=== PATIENT | male | born 1980 | race Caucasian/White ===

== ENCOUNTER 2020-09-28 09:56 | Emergency (ER) | payer BC, SELFPAY ==
[2020-09-28 10:12] VITALS: BP 156/80; PULSE 66; RESP 16; TEMP 36.8; O2SAT 99; BMI 30.9
--- NOTE | 2020-09-28 11:06 | PC.NURSE ---
PT WAS ABLE TO CAPTURE BAT AND BRING TO ANIMAL CONTROL FOR TESTING.
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
== END 2020-09-28 11:37 | disposition home or self-care (01) ==
PROVIDERS: Emergency Provider Emergency Medicine
DX: Z20.3 Contact with and (suspected) exposure to rabies (principal)
CPT/HCPCS: 99283

== ENCOUNTER 2022-01-07 12:17 | Emergency (ER) | payer BC, SELFPAY ==
[2022-01-07 12:22] VITALS: BP 137/89; PULSE 89; RESP 16; O2SAT 99; BMI 30.9
[2022-01-07] MEDS: Diphth,Pertus(ACell),Tet Adult 0.5 ML SYRINGE IM (13:13)
[2022-01-07] MEDS: Lidocaine HCl 1%/Epi 1:100,000 20 ML VIAL INFILTRATI (13:29)
--- NOTE | 2022-01-07 14:00 | ED.WOUNDLAC ---
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 Tetanus unknown. Denies injuries to other area, numbness, tingling, weakness, decreased ROM, fever. Onset (ago): hour(s) Related Data Previous Rx's Medication Instructions Recorded cephalexin 500 mg capsule 500 mg PO QID 7 days #28 caps 01/07/22 Allergies Allergy/AdvReac Type Severity Reaction Status Date / Time No Known Allergies Allergy Verified 09/28/20 10:14 Review of Systems Review of Systems: Constitutional: No Fever, No Chills ENT/Mouth: No Ear Pain, No Nasal Congestion, No Sinus Pain, No Hoarseness, No sore throat, No Rhinorrhea, No Swallowing Difficulty Cardiovascular: No Chest Pain, No SOB Respiratory: No Cough, No Sputum, No Wheezing Gastrointestinal: No Nausea, No Vomiting, No Diarrhea, No Constipation, No Abdominal pain Genitourinary: No Dysuria, No Urgency, No Flank Pain Musculoskeletal: No joint pain, No Myalgias, No Joint Swelling Skin: +Skin Lesions, No rash Neuro: No Weakness, No Numbness, No Paresthesias Yes all other systems are reviewed and are negative [facility] Past Medical History Attestation statement: The following information was validated with the patient. Medical History No known health problems Social History Social History Advance Directives: No Advance Directives Information Provided: No Physical Exam Vital Signs: Vital Signs: Last Vital Signs Pulse 89 01/07/22 12:22 Resp 16 01/07/22 12:22 BP 137/89 01/07/22 12:22 Pulse Ox 99 01/07/22 12:22 O2 Del Method 01/07/22 12:22 BMI result Body Mass Index 30.9 Const: General: cooperative, healthy appearing and no acute distress Orientation/consciousness: patient oriented x3 Limitations: no limitations HEENT: Head: Yes normal to inspection and Yes atraumatic Ears: hearing grossly normal bilaterally General nose exam: Normal external nose present Face and sinus: Yes normal facial exam Eyes: General: appearance normal, both eyes and all related structures EOM: EOMs intact bilaterally Neck: Neck: Yes normal visual inspection and Yes no meningeal signs Resp: Effort & Inspection: normal respiratory effort and no respiratory distress Cardio: Rate: regular rate Heart sounds: S1 normal heart sound present and S2 normal heart sound present Skin: Other: +6 cm linear laceration noted just proximal to right knee & + 5 cm linear deeper laceration noted just below (still proximal to knee). Bleeding controlled. No visible/appreciable underlying structures. Full range of motion intact to knee. 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 On exam vital signs stable, NAD, nontoxic appearing, physical exam as above with to lacerations noted to right distal thigh. No appreciable tendon or underlying structure disrupted. Plan: Update tetanus, repair laceration Medical Records Attestation: I reviewed the patient's medical records. Lab Data Attestation: I reviewed the patient's lab results. Procedures Laceration Laceration 1: Site: lower extremity Side (If applicable): left Size (cm): 6 Description: linear Depth: simple, single layer Local Anesthetic: lidocaine 1% and with epi Amount of anesthesia used (mL): 5 Pre-repair: wound explored and irrigated extensively Skin layer closed with: nylon Size (cm): 4-0 Number of sutures: 7 Technique: simple, interrupted Laceration 2: Site: lower extremity Side (If applicable): left Size (cm): 5 Description: linear Depth: simple, single layer Local Anesthetic: lidocaine 1% and with epi Amount of anesthesia used (mL): 4 Pre-repair: wound explored and irrigated extensively Skin layer closed with: nylon Size (cm): 4-0 Number of sutures: 7 Technique: simple, interrupted Discharge Plan Discharge Clinical Impression: Laceration, Abrasion Patient Disposition: Home, Self-Care Instructions: Laceration (ED) Additional Instructions: Keflex as an antibiotic please take as prescribed Your wounds were repaired today in the emergency department. Keep dry and clean. You need to return to any emergency department or urgent care in 7-10 days for suture removal Apply bacitracin and or Neosporin daily Once sutures are removed apply anti scar cream like Mederma If area begins look infected, is red, there is drainage, streaking, or you have fever please return to the emergency department Prescriptions: New cephalexin 500 mg capsule 500 mg PO QID 7 Days Qty: 28 0RF Referrals: Physician,Unknown J [Primary Care Provider] - 10 days (Return to any emergency department return care in 7-10 days for suture removal) Interventions: ED Discharge Assessment Last Done: 01/07/22 14:17 Discharge Date/Time: 01/07/22 14:25
== END 2022-01-07 14:25 | disposition home or self-care (01) ==
PROVIDERS: Emergency Provider Emergency Medicine
DX: S81.811A Laceration without foreign body, right lower leg, initial encounter (principal); S81.011A Laceration without foreign body, right knee, initial encounter; S70.312A Abrasion, left thigh, initial encounter; W29.3XXA Contact with powered garden and outdoor hand tools and machinery, initial encounter; Y93.H2 Activity, gardening and landscaping; Y92.017 Garden or yard in single-family (private) house as the place of occurrence of the external cause; Y99.9 Unspecified external cause status
CPT/HCPCS: 12034; 90471; 90715; 99282; 99284

== ENCOUNTER → 2022-08-23 13:40 | Outpatient (BNVA) | payer OTHER, SELFPAY | PROVIDERS: Visit Provider Internal Medicine | DX: R20.2 Paresthesia of skin (principal); M54.2 Cervicalgia | CPT/HCPCS: 72050; 99203 ==

== ENCOUNTER → 2022-08-25 13:27 | Outpatient (BNVA) | payer SELFPAY | PROVIDERS: PCP Internal Medicine; Visit Provider Physician Assistant Medical | DX: Z02.79 Encounter for issue of other medical certificate (principal) ==

== ENCOUNTER → 2022-09-06 08:09 | Outpatient (BNVA) | payer OTHER, SELFPAY | PROVIDERS: PCP Internal Medicine; Visit Provider Internal Medicine | DX: M54.2 Cervicalgia (principal); R20.2 Paresthesia of skin | CPT/HCPCS: 99213 ==

== ENCOUNTER 2022-09-07 08:00 | Outpatient (RCR) | payer OTHER, SELFPAY ==
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
--- NOTE | 2022-11-03 17:40 | MHC.PT.DC ---
[facility] [place] Office [place] Office [place] Office [address] Trena Rubin [address] [phone] F: [phone] F: [phone] F: [phone] F: [phone] Physical Therapy Discharge Report Diagnosis: L arm radicular numbness Date of Surgery: n/a Date of Evaluation: 08/24/22 Date of Discharge: 11/03/22 Treatments to Date: 3 Cancellations to Date: 4 No Shows to Date: 0 Discharge Status: Insurance Declined Tx Discharge Summary: Pt denied further treatment from insurance. Pt to be d/c and follow up with provider. Electronically signed by: Yesy Calvo, PT, DPT, ATC Please sign and return to therapist. Thank you for your referral.
== END 2022-11-03 17:41 | disposition home or self-care (01) ==
LOC: HO.PTCHIC 08:00
PROVIDERS: PCP Internal Medicine; Visit Provider Internal Medicine
DX: R20.0 Anesthesia of skin (principal)
CPT/HCPCS: 97110; 97140; 97161

== ENCOUNTER → 2023-03-03 08:55 | Outpatient (BNVA) | payer OTHER, SELFPAY | PROVIDERS: PCP Internal Medicine; Visit Provider Internal Medicine | DX: M54.2 Cervicalgia (principal); R20.2 Paresthesia of skin | CPT/HCPCS: 99214 ==

== ENCOUNTER → 2023-03-08 13:05 | Outpatient (BNVA) | payer OTHER, SELFPAY | PROVIDERS: PCP Internal Medicine; Visit Provider Internal Medicine | DX: M50.20 Other cervical disc displacement, unspecified cervical region (principal) | CPT/HCPCS: 99213 ==

== ENCOUNTER → 2023-03-10 08:18 | Outpatient (BNVA) | payer OTHER, SELFPAY | PROVIDERS: PCP Internal Medicine; Visit Provider Internal Medicine | DX: M54.2 Cervicalgia (principal) | CPT/HCPCS: 99213 ==

== ENCOUNTER 2023-03-10 08:53 | Emergency (ER) | payer OTHER, SELFPAY ==
--- NOTE | ~2023-03-10 | CT_ITS ---
EXAMINATION: CT HEAD WITHOUT CONTRAST CLINICAL INFORMATION: Right arm weakness, neck pain. COMPARISON: None available. TECHNIQUE: Contiguous axial imaging was performed from the skull base to vertex without intravenous administration of contrast. Coronal and sagittal reformatted images were obtained. This CT examination was performed using dose optimization techniques as appropriate, variously including the following: *Automated exposure control *Adjustment of mA and/or kV according to patient size (this includes techniques or standardized protocols for targeted exams where dose is matched to indication/reason for exam; i.e. extremities or head) *Use of iterative reconstruction technique DLP: 655.43 mGy-cm FINDINGS: The cortical sulci are normal. The lateral ventricles are symmetrical. The third and fourth ventricles are in their normal midline position. The basilar and prepontine cisterns are unremarkable. There is no acute intra or extracerebral abnormality. There is no mass effect or midline shift. Sections through the bony calvarium are unremarkable. The paranasal sinuses are clear. The bony orbits and orbital contents are unremarkable. CT/CT head/brain wo IV con IMPRESSION: No acute intracranial pathology.
--- NOTE | ~2023-03-10 | CT_ITS ---
EXAMINATION: CT CERVICAL SPINE WITHOUT CONTRAST CLINICAL INFORMATION: Right hand weakness, neck pain. COMPARISON: Cervical spine radiographs dated 08/23/2022, MRI of the cervical spine dated 06/14/2012. TECHNIQUE: Multiple axial images of the cervical spine were obtained without the demonstration of intravenous contrast. Coronal and sagittal reformatted images were obtained. This CT examination was performed using dose optimization techniques as appropriate, variously including the following: *Automated exposure control *Adjustment of mA and/or kV according to patient size (this includes techniques or standardized protocols for targeted exams where dose is matched to indication/reason for exam; i.e. extremities or head) *Use of iterative reconstruction technique DLP: 655.43 mGy-cm FINDINGS: There is reversal of the normal cervical lordosis with normal spinal alignment. Mild degenerative disc disease is seen from C4-C5 to C6-C7 with disc space narrowing and marginal osteophyte formation. The vertebral bodies are intact. The neural foramina are patent. The facet joints are unremarkable. The spinous and transverse processes are intact. No lymphadenopathy is seen. The thyroid gland is unremarkable. Asymmetric superficial subcutaneous opacity is seen in the right superior posterior neck measuring approximately 1.7 x 1.0 cm (image 47, series 5). The visualized lung apices are clear. CT/CT cervical spine wo IV con IMPRESSION: 1. Reversal of the normal cervical lordosis may be secondary to positioning and/or muscle spasm. 2. Mild multilevel degenerative changes without acute abnormality. 3. Asymmetric superficial subcutaneous opacity in the right superior posterior neck is nonspecific. This could represent a sebaceous cyst. Correlate with physical exam. If clinically indicated this could be further evaluated with nonemergent targeted soft tissue ultrasound.
[2023-03-10 08:58] VITALS: BP 145/92; PULSE 83; RESP 16; O2SAT 97; BMI 30.5
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
[2023-03-10] MEDS: Ketorolac Tromethamine 30 MG/ML VIAL IM (09:20)
[2023-03-10] MEDS: HYDROmorphone HCl 2 MG/ML VIAL IM (09:21)
[2023-03-10] MEDS: Lidocaine 4 % Patch ADH..PATCH 1 PATCH TRANSDERMA (10:52)
[2023-03-10] MEDS: diazePAM 2 MG TABLET 5 MG PO (10:53)
[2023-03-10 10:59] VITALS: BP 141/69; PULSE 65; RESP 16; O2SAT 97
--- NOTE | 2023-03-10 11:00 | PC.NURSE ---
pt refused acetaminophen. pt medicated per sep. aware of plan of care; awaiting ct results. no changes to previous neuros/asssessment by this RN. call macias within reach.
== END 2023-03-10 11:49 | disposition home or self-care (01) ==
PROVIDERS: Emergency Provider Emergency Medicine; PCP Internal Medicine
DX: Z04.2 Encounter for examination and observation following work accident (principal); M54.2 Cervicalgia; M54.12 Radiculopathy, cervical region
CPT/HCPCS: 70450; 72125; 96372; 99284; 99285; J1170; J1885

== ENCOUNTER → 2023-03-11 08:19 | Outpatient (BNVA) | payer OTHER, SELFPAY | PROVIDERS: PCP Internal Medicine; Visit Provider Internal Medicine | DX: G24.3 Spasmodic torticollis (principal) | CPT/HCPCS: 99214 ==

== ENCOUNTER 2023-03-11 12:22 | Outpatient (REF) | payer OTHER, SELFPAY ==
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
== END 2023-03-11 12:23 | disposition home or self-care (01) ==
LOC: HO.MRI 12:22
PROVIDERS: PCP Internal Medicine; Visit Provider Internal Medicine
DX: R53.1 Weakness (principal); V89.2XXA Person injured in unspecified motor-vehicle accident, traffic, initial encounter
CPT/HCPCS: 72141

== ENCOUNTER → 2023-03-15 09:39 | Outpatient (BNVA) | payer OTHER, SELFPAY | PROVIDERS: PCP Internal Medicine; Visit Provider Internal Medicine | DX: M54.2 Cervicalgia (principal); R20.0 Anesthesia of skin | CPT/HCPCS: 99214 ==

== ENCOUNTER → 2023-03-21 07:51 | Outpatient (BNVA) | payer OTHER, SELFPAY | PROVIDERS: PCP Internal Medicine; Visit Provider Internal Medicine | DX: M54.12 Radiculopathy, cervical region (principal) | CPT/HCPCS: 99214 ==

== ENCOUNTER → 2023-03-28 07:50 | Outpatient (BNVA) | payer OTHER, SELFPAY | PROVIDERS: PCP Internal Medicine; Visit Provider Internal Medicine | DX: M79.601 Pain in right arm (principal); M47.22 Other spondylosis with radiculopathy, cervical region | CPT/HCPCS: 99213 ==

== ENCOUNTER 2023-04-01 10:37 | Outpatient (REF) | payer BC, OTHER, SELFPAY ==
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
== END 2023-04-01 10:38 | disposition home or self-care (01) ==
LOC: HO.NEURO 10:37
PROVIDERS: PCP Internal Medicine; Visit Provider Internal Medicine
DX: R20.2 Paresthesia of skin (principal)
CPT/HCPCS: 95886; 95911

== ENCOUNTER → 2023-04-01 10:39 | Outpatient (BNV) | payer OTHER, SELFPAY | PROVIDERS: PCP Internal Medicine; Visit Provider Physical Medicine & Rehabilitation | DX: M54.2 Cervicalgia (principal); G56.02 Carpal tunnel syndrome, left upper limb | CPT/HCPCS: 95886; 95911 ==

== ENCOUNTER → 2023-04-04 07:52 | Outpatient (BNVA) | payer OTHER, SELFPAY | PROVIDERS: PCP Internal Medicine; Visit Provider Internal Medicine | DX: G56.02 Carpal tunnel syndrome, left upper limb (principal) | CPT/HCPCS: 99213 ==

== ENCOUNTER → 2023-04-11 07:58 | Outpatient (BNVA) | payer OTHER, SELFPAY | PROVIDERS: PCP Internal Medicine; Visit Provider Internal Medicine | DX: M79.601 Pain in right arm (principal) | CPT/HCPCS: 99213 ==

== ENCOUNTER → 2023-04-25 08:09 | Outpatient (BNVA) | payer OTHER, SELFPAY | PROVIDERS: PCP Internal Medicine; Visit Provider Internal Medicine | DX: M54.12 Radiculopathy, cervical region (principal); S16.1XXD Strain of muscle, fascia and tendon at neck level, subsequent encounter; V89.0XXD Person injured in unspecified motor-vehicle accident, nontraffic, subsequent encounter | CPT/HCPCS: 99213 ==

== ENCOUNTER → 2023-05-02 09:18 | Outpatient (BNVA) | payer OTHER, SELFPAY | PROVIDERS: PCP Internal Medicine; Visit Provider Internal Medicine | DX: M79.601 Pain in right arm (principal); R20.0 Anesthesia of skin | CPT/HCPCS: 99213 ==

== ENCOUNTER → 2023-05-16 08:07 | Outpatient (BNVA) | payer OTHER, SELFPAY | PROVIDERS: PCP Internal Medicine; Visit Provider Internal Medicine | DX: M54.2 Cervicalgia (principal); R20.2 Paresthesia of skin | CPT/HCPCS: 99213 ==

== ENCOUNTER → 2023-06-06 08:02 | Outpatient (BNVA) | payer OTHER, SELFPAY | PROVIDERS: PCP Internal Medicine; Visit Provider Internal Medicine | DX: R20.2 Paresthesia of skin (principal); M54.12 Radiculopathy, cervical region | CPT/HCPCS: 99213 ==

== ENCOUNTER → 2023-07-06 08:49 | Outpatient (BNVA) | payer OTHER, SELFPAY | PROVIDERS: PCP Internal Medicine; Visit Provider Internal Medicine | DX: G56.81 Other specified mononeuropathies of right upper limb (principal); G55 Nerve root and plexus compressions in diseases classified elsewhere | CPT/HCPCS: 99213 ==

== ENCOUNTER 2023-10-14 07:00 | Outpatient (RCR) | payer OTHER, BC, SELFPAY | END 2023-11-15 09:17 | disposition home or self-care (01) | LOC: HO.PTCHIC 07:00 | PROVIDERS: Visit Provider Neurological Surgery | DX: M50.20 Other cervical disc displacement, unspecified cervical region (principal) | CPT/HCPCS: 97110; 97140; 97161; 97162 ==

== ENCOUNTER → 2024-06-15 08:40 | Outpatient (BNVA) | payer OTHER, SELFPAY | PROVIDERS: Visit Provider Registered Nurse | DX: Z02.79 Encounter for issue of other medical certificate (principal) ==